=== PATIENT | male | born 1940 | race Caucasian/White ===

== ENCOUNTER → 2016-10-19 | Outpatient (CLI) | payer MEDICARE, BC ==
--- NOTE | 2016-10-19 12:12 | KCIC ---
Procedure: MR of the right shoulder History: Right shoulder pain. Patient wakes at night due to pain. Pain is chronic. Prior history of injury and prior surgery. TECHNIQUE: Routine multiplanar sequences are obtained. FINDINGS: The acromioclavicular joint demonstrates severe degenerative arthrosis. There is loss of definition of the cortical and subchondral margins of the outer clavicle. Bone marrow edema and mild cystic change. There is some mild susceptibility artifact. This may be an area of prior surgery. Complex septated synovial type cyst is identified just above the joint, measuring about 2 cm Full-thickness rupture of most of the supraspinatus and infraspinatus tendons, sparing some far anterior supraspinatus fibers and far posterior infraspinatus fibers. The tear measures about 4.0 cm in AP diameter. Moderate to severe retraction 3.5 cm. Partial subscapularis tendon tear. Moderate muscle volume loss with severe fatty infiltration. Small glenohumeral joint effusion, entering the subdeltoid bursa. Severe glenohumeral joint primary osteoarthritis with subchondral bone exposure and edema. Flattening and volume loss of the glenoid bone. Extensive subchondral marrow edema at the glenoid is likely reactive and degenerative. Circumferential labral degeneration and tearing. Biceps tendon poorly visualized compatible with high-grade tear or rupture. Subchondral cysts of the humeral head. No acute fracture or aggressive bone destruction. Marrow edema at the glenoid is probably reactive and degenerative. IMPRESSION: 1. Large retracted rupture of the supraspinatus and infraspinatus tendons with severe atrophy. Partial subscapularis tendon tear. 2. Severe glenohumeral joint primary osteoarthritis. 3. Circumferential labral degeneration and tearing. 4. High-grade tear or rupture of the biceps tendon. 5. 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 Electronically signed by: Darron Gonzales MD (10/19/2016 12:08 PM)
== END | disposition home or self-care (01) ==
LOC: KCIC MRI 10:29
PROVIDERS: ATTEND Orthopaedic Surgery Sports Medicine
DX: M19.011 Primary osteoarthritis, right shoulder (principal); M71.311 Other bursal cyst, right shoulder; S46.211A Strain of muscle, fascia and tendon of other parts of biceps, right arm, initial encounter; X58.XXXA Exposure to other specified factors, initial encounter; Y93.89 Activity, other specified; Y92.89 Other specified places as the place of occurrence of the external cause; Y99.8 Other external cause status
CPT/HCPCS: 73221